=== PATIENT | male | born 1980 | race Caucasian/White ===

== ENCOUNTER 2016-11-08 12:33 | Emergency (ER) | payer SELFPAY ==
[~2016-11-08] VITALS: Ht 172.7 cm; Wt 95.3 kg
[~2016-11-08 12:33] MED LIST: NAPR375T3 PO; PROM25TA10 PO
--- NOTE | 2016-11-08 13:03 | PHYS DOC ---
Past Medical History Past Medical History: Anxiety, Bipolar, Hypertension Past Surgical History: Other Additional Past Surgical Histo: ear tubes as child Alcohol Use: Heavy Drug Use: Marijuana Adult General Chief Complaint Chief Complaint: HYPERTENSION HPI HPI Patient is a 36 year old male who presents with epistaxis. The patient states he has had several nosebleeds recently, most recently from the right nare shortly prior to arrival. The nosebleed was easily controlled with application of direct pressure. He is concerned that his blood pressure might be elevated because he used to take an unknown hypertensive which he quit taking for financial reasons. Denies headache, vision changes, chest pain, SOB, extremity numbness/weakness, edema. He does not take blood thinners. He does not have a PCP. Review of Systems Review of Systems Constitutional: Denies fever or chills Eyes: Denies change in visual acuity HENT: Denies nasal congestion or sore throat, reports epistaxis Respiratory: Denies cough or shortness of breath Cardiovascular: Denies chest pain or edema GI: Denies abdominal pain, nausea, vomiting Musculoskeletal: Denies back pain or joint pain Integument: Denies rash or skin lesions Neurologic: Denies headache, focal weakness or sensory changes Allergies Allergies Allergies Coded Allergies Type Severity Reaction Last Updated Verified No Known Drug Allergies 10/26/15 No Physical Exam Physical Exam Constitutional: obese, very anxious, non-toxic appearance. HENT: Normocephalic, atraumatic, bilateral external ears normal, oropharynx moist, dried blood at right nare, no active bleeding, no nasal septal hematoma. Eyes: conjunctiva normal, no discharge. Neck: supple, no stridor. Cardiovascular: RRR, no murmurs, no edema. Lungs & Thorax: LCTAB, no wheezing, no respiratory distress. Abdomen: soft, nontender, nondistended. Skin: Warm, dry, no erythema, no rash. Back: No tenderness. Extremities: No tenderness, no edema. Neurologic: Alert and oriented X 3, no focal deficits noted. Psychologic: very anxious Current Patient Data Vital Signs Vital Signs Date Time Temp Pulse Resp B/P (MAP) Pulse Ox O2 Delivery O2 Flow Rate FiO2 11/08/16 13:26 114 20 150/83 (105) 96 Room Air 11/08/16 12:45 98.9 98.9 EKG EKG [] Radiology/Procedures Radiology/Procedures [] Course & Med Decision Making Course & Med Decision Making Pertinent Labs and Imaging studies reviewed. (See chart for details) The patient presents with epistaxis. His blood pressure is only mildly elevated. He appears quite anxious. Heart rate elevated at triage, 95-105 during my exam. He has no complaints at time of exam. Recommend afrin nasal spray as needed for epistaxis. Will not initiate BP meds today, recommend follow up with PCP in 1 week for BP recheck & discussion of meds. Return for uncontrolled epistaxis, severe headache, chest pain, shortness of breath, focal neuro deficit, or any otherwise worsening condition. Discharged home in stable condition. [] Dragon Disclaimer Dragon Disclaimer This electronic medical record was generated, in whole or in part, using a voice recognition dictation system. Departure Departure Impression: Primary Impression: Epistaxis Disposition: HOME, SELF-CARE Condition: STABLE Referrals: NO PCP (PCP) ADRIANNA WHITLEY MD Patient Instructions: Hypertension, [id number], Nosebleed, [id number] Additional Instructions: You were seen in the emergency department today for blood pressure check. Your blood pressure is slightly high. We recommend recheck by a primary care physician to determine need for medication. For nose bleeds be sure not to pick your nose. Use Afrin nasal spray for nosebleed and hold direct pressure over the bridge of the nose for at least 10 minutes. Make an appointment in the clinic with Dr. Whitley in about 1 week. Come back for nosebleed that won't stop , sudden onset severe headache, severe chest pain or shortness of breath, or any otherwise worsening condition. SHABBIR LUGO MD November 08, 2016 13:03
[2016-11-08 13:26] VITALS: BP 150/83
== END 2016-11-08 13:27 | disposition home or self-care (01) ==
LOC: ER 12:43
DX: R04.0 Epistaxis (principal); I10 Essential (primary) hypertension; F41.9 Anxiety disorder, unspecified; F31.9 Bipolar disorder, unspecified; F12.10 Cannabis abuse, uncomplicated; F10.10 Alcohol abuse, uncomplicated; Z96.22 Myringotomy tube(s) status
CPT/HCPCS: 99281

== ENCOUNTER 2017-10-07 18:57 | Inpatient (IN) | payer SELFPAY ==
[2017-10-07 19:27] LABS: ADD MAN DIFF? NO
[2017-10-07 19:31] LABS: BASO # 0.1 x10^3/uL (0.0-0.2); BASO % 1 % (0-3); EOS # 0.1 x10^3/uL (0.0-0.7); EOS % 1 % (0-3); HEMATOCRIT 41.5 % (39.0-53.0); HEMOGLOBIN 14.3 g/dL (13.0-17.5); LYMPH # 4.2 x10^3/uL (1.0-4.8); LYMPH % 38 % (24-48); MEAN CORPUSCULAR HEMOGLOBIN 34 pg (25-35); MEAN CORPUSCULAR HGB CONC 34 g/dL (31-37); MEAN CORPUSCULAR VOLUME 99 fL (79-100); MONO # 0.6 x10^3/uL (0.0-1.1); MONO % 6 % (0-9); NEUT # 6.2 x10^3uL (1.8-7.7); NEUT % 55 % (31-73); PLATELET COUNT 383 x10^3/uL (140-400); RED BLOOD COUNT 4.21 x10^6/uL (4.30-5.70); RED CELL DISTRIBUTION WIDTH 13.8 % (11.5-14.5); WHITE BLOOD COUNT 11.2 x10^3/uL (4.0-11.0)
[2017-10-07 19:37] LABS: ANION GAP 18 (6-14); BLOOD UREA NITROGEN 9 mg/dL (8-26); CALCIUM 9.4 mg/dL (8.5-10.1); CARBON DIOXIDE 20 mmol/L (21-32); CHLORIDE 98 mmol/L (98-107); CREATININE 0.8 mg/dL (0.7-1.3); GFR 109.4; GLUCOSE 93 mg/dL (70-99); POTASSIUM 3.8 mmol/L (3.5-5.1); SODIUM 136 mmol/L (136-145)
[2017-10-07] MEDS: HALOPERIDOL 5 MG TABLET. PO (19:41)
[2017-10-07 19:42] LABS: ETHANOL 236 mg/dL (0-10); SALIC 5.9 mg/dL (2.8-20.0)
[2017-10-07 19:43] LABS: ACETAMIN < 2 mcg/ml (10-30)
[2017-10-07 19:45] LABS: ALK PHOS 64 U/L (46-116); ALT (SGPT) 28 U/L (16-63); AST (SGOT) 31 U/L (15-37); DIRECT BILIRUBIN 0.2 mg/dL (0.0-0.2); LIPASE 141 U/L (73-393); TOTAL BILIRUBIN 0.6 mg/dL (0.2-1.0); TOTAL PROTEIN 8.8 g/dL (6.4-8.2)
[2017-10-07] MEDS: IV NORMAL SALINE 1000ML BAG 1,000 ML IV ×2 (20:18→21:00)
[2017-10-07 20:48] LABS: BILIRUBIN,URINE NEGATIVE (NEG); CLARITY,URINE CLEAR; COLOR,URINE YELLOW; GLUCOSE,URINE NEGATIVE (NEG); NITRITE,URINE NEGATIVE (NEG); PROTEIN,URINE 30 mg/dL (NEG-TRACE); UROBILINOGEN,URINE 0.2 mg/dL (0.2 mg/dL)
[2017-10-07] MEDS: MULTIVIT INFUSN,ADULT 4,VIT K 10 ML, THIAMINE 100 MG, FOLIC ACID 1 MG in IV DEXTROSE 5%... IV (20:50)
[2017-10-07 20:53] LABS: BACTERIA,URINE 0 /HPF (0-FEW); SQUAMOUS EPITHELIAL CELL,UR OCC /LPF
[2017-10-07 20:55] LABS: BARBITURATES NEG (NEG); BENZODIAZEPINES NEG (NEG); CANNABINOIDS POS (NEG); COCAINE NEG (NEG); METHADONE NEG (NEG); OPIATES NEG (NEG); PHENCYCLIDINE NEG (NEG)
[2017-10-07 20:59] LABS: AMPHETAMINE/METHAMPHETAMINE POS (NEG); ETHANOL, URINE POS (NEG)
[2017-10-07] MEDS: NICOTINE 21MG PATCH. TD (21:24)
[2017-10-07] MEDS: NICOTINE POLACRILEX 2MG GUM PACKAGE of 12. BC (21:25)
[2017-10-07] MEDS: KETAMINE HCL 500 MG/10 ML VIAL. IV (21:30)
[2017-10-07 22:20] LABS: ETHANOL 156 mg/dL (0-10)
[2017-10-08] MEDS: IV NORMAL SALINE 1000ML BAG 1,000 ML IV ×3 (02:03→17:43)
[2017-10-08 04:37] LABS: ADD MAN DIFF? NO
[2017-10-08 05:11] LABS: BASO % 1 % (0-3); EOS # 0.2 x10^3/uL (0.0-0.7); EOS % 3 % (0-3); HEMATOCRIT 35.9 % (39.0-53.0); HEMOGLOBIN 12.2 g/dL (13.0-17.5); LYMPH # 3.1 x10^3/uL (1.0-4.8); LYMPH % 46 % (24-48); MEAN CORPUSCULAR HEMOGLOBIN 34 pg (25-35); MEAN CORPUSCULAR HGB CONC 34 g/dL (31-37); MEAN CORPUSCULAR VOLUME 99 fL (79-100); MONO # 0.6 x10^3/uL (0.0-1.1); MONO % 9 % (0-9); NEUT # 2.9 x10^3uL (1.8-7.7); NEUT % 43 % (31-73); PLATELET COUNT 290 x10^3/uL (140-400); RED BLOOD COUNT 3.63 x10^6/uL (4.30-5.70); WHITE BLOOD COUNT 6.8 x10^3/uL (4.0-11.0)
[2017-10-08 05:33] LABS: ANION GAP 8 (6-14); BLOOD UREA NITROGEN 9 mg/dL (8-26); CALCIUM 8.6 mg/dL (8.5-10.1); CARBON DIOXIDE 27 mmol/L (21-32); CHLORIDE 106 mmol/L (98-107); CREATININE 0.8 mg/dL (0.7-1.3); GFR 109.4; GLUCOSE 86 mg/dL (70-99); POTASSIUM 4.1 mmol/L (3.5-5.1); SODIUM 141 mmol/L (136-145)
[2017-10-08] MEDS: diphenhydrAMINE 50 MG/ML VIAL IVP (08:39)
[2017-10-08] MEDS ORDERED: LORazepam 1 MG TABLET PO (08:45)
[2017-10-08] MEDS ORDERED: cloNIDine HCL 0.1 MG TABLET PO (09:15)
[2017-10-08] MEDS ORDERED: HALOPERIDOL LACTATE 5 MG/ML VIAL. IVP (09:15)
[2017-10-08] MEDS: MULTIVIT INFUSN,ADULT 4,VIT K 10 ML, THIAMINE 100 MG, FOLIC ACID 1 MG in IV NORMAL SALI... IV (09:40)
[2017-10-08] MEDS: NICOTINE POLACRILEX 2MG GUM PACKAGE of 12. BC ×2 (17:43→19:46)
[2017-10-08] MEDS: QUEtiapine 100 MG TABLET. PO (19:42)
[2017-10-09] MEDS: NICOTINE 21MG PATCH. TD (08:20)
[2017-10-09] MEDS: NICOTINE POLACRILEX 2MG GUM PACKAGE of 12. BC (08:20)
[2017-10-09] MEDS: MULTIVIT INFUSN,ADULT 4,VIT K 10 ML, THIAMINE 100 MG, FOLIC ACID 1 MG in IV NORMAL SALI... IV (08:48)
[2017-10-09] MEDS: diphenhydrAMINE 50 MG/ML VIAL IVP (12:24)
== END 2017-10-09 15:36 | DRG 896 ==
LOC: ER 18:57 → 6 SOUTH 22:29
DX: F10.239 Alcohol dependence with withdrawal, unspecified (principal); G92 Toxic encephalopathy; F20.9 Schizophrenia, unspecified; R45.850 Homicidal ideations; R45.851 Suicidal ideations; F41.9 Anxiety disorder, unspecified; F17.210 Nicotine dependence, cigarettes, uncomplicated; F15.129 Other stimulant abuse with intoxication, unspecified; F12.929 Cannabis use, unspecified with intoxication, unspecified; D72.829 Elevated white blood cell count, unspecified; I10 Essential (primary) hypertension; F31.9 Bipolar disorder, unspecified; J44.9 Chronic obstructive pulmonary disease, unspecified; Z81.1 Family history of alcohol abuse and dependence; Z59.0 Homelessness
CPT/HCPCS: 36415; 80048; 80076; 80307; 80329; 81001; 83690; 85025; 96374; 96375; 96376; 99285; 99285-25; G0480; J1200; J2060; J7030